=== PATIENT | male | born 1985 | race Caucasian/White ===

== ENCOUNTER 2016-08-14 17:21 | Emergency (ER) | payer OTHER ==
[2016-08-14] MEDS ORDERED: NS 1,000 ML IV ONE (18:06)
[2016-08-14] MEDS ORDERED: NITROGLYCERIN 0.4 MG BTL SL ONE (18:06)
[2016-08-14] MEDS ORDERED: GLUCAGON,HUMAN RECOMBINANT 1 MG VIAL IVP ONE (18:06)
[2016-08-14] MEDS ORDERED: ONDANSETRON 4 MG/2 ML VIAL IVP ONE (18:06)
--- NOTE | 2016-08-14 18:09 | EDPHY ---
H & P Stated Complaint: ? esophageal spasm/obstruction/has been unable to swallow for 22 hrs Time Seen by Provider: 08/14/16 17:58 HPI/ROS: CHIEF COMPLAINT: Esophageal foreign body HISTORY OF PRESENT ILLNESS: The patient is a 30-year-old man who comes to the emergency department complaining of an esophageal foreign body that has been present for 23 hours. Last night he is eating ribs when he noticed it got stuck in his throat. This has happened to him several times before but usually passes after about 10 minutes. He has been spitting out his secretions since then. He has tried taking Flexeril crushed up as well as drinking carbonated water without significant improvement. Both times he was unable to swallow them completely in the came back out. He denies shortness of breath. He denies chest pain. He has no history of cardiac disease. He is not a smoker. He has never been worked up for this previously. He has not vomited. REVIEW OF SYSTEMS: Constitutional: denies: chills, fever, recent illness, recent injury EENTM: denies: blurred vision, double vision, nose congestion Respiratory: denies: cough, shortness of breath Cardiac: denies: chest pain, irregular heart rate, lightheadedness, palpitations Gastrointestinal/Abdominal: See HPI Genitourinary: denies: dysuria, frequency, hematuria, pain Musculoskeletal: denies: joint pain, muscle pain Skin: denies: lesions, rash, jaundice, bruising Neurological: denies: headache, numbness, paresthesia, tingling, dizziness, weakness Hematologic/Lymphatic: denies: blood clots, easy bleeding, easy bruising Immunologic/allergic: denies: HIV/AIDS, transplant EXAM: GENERAL: Well-appearing, well-nourished and in no acute distress. HEAD: Atraumatic, normocephalic. EYES: Pupils equal round and reactive to light, extraocular movements intact, sclera anicteric, conjunctiva are normal. ENT: TMs normal, nares patent, oropharynx clear without exudates. Moist mucous membranes. NECK: Normal range of motion, supple without lymphadenopathy or JVD. LUNGS: Breath sounds clear to auscultation bilaterally and equal. No wheezes rales or rhonchi. HEART: Regular rate and rhythm without murmurs, rubs or gallops. ABDOMEN: Soft, nontender, normoactive bowel sounds. No guarding, no rebound. No masses appreciated. BACK: No CVA tenderness, no spinal tenderness, step-offs or deformities EXTREMITIES: Normal range of motion, no pitting or edema. No clubbing or cyanosis. NEUROLOGICAL: Cranial nerves II through XII grossly intact. Normal speech, normal gait. 5/5 strength, normal movement in all extremities, normal sensation PSYCH: Normal mood, normal affect. SKIN: Warm, dry, normal turgor, no visible rashes or lesions. Source: Patient Exam Limitations: No limitations - Personal History Current Tetanus/Diphtheria Vaccine: Unsure - Medical/Surgical History Hx Asthma: No Hx Chronic Respiratory Disease: No Hx Diabetes: No Hx Cardiac Disease: No Hx Renal Disease: No Hx Cirrhosis: No Hx Alcoholism: No Hx HIV/AIDS: No Hx Splenectomy or Spleen Trauma: No Other PMH: denies - Family History Significant Family History: No pertinent family hx - Social History Smoking Status: Never smoked Alcohol Use: Sober Drug Use: None Constitutional: Initial Vital Signs Temperature (C) 36.9 C 08/14/16 17:28 Heart Rate 74 08/14/16 17:28 Respiratory Rate 18 08/14/16 17:28 Blood Pressure 126/94 H 08/14/16 17:28 O2 Sat (%) 96 08/14/16 17:28 O2 Delivery Mode Room Air Allergies/Adverse Reactions: No Known Allergies Allergy (Unverified 08/14/16 17:28) Home Medications: Medication Instructions Recorded NK [No Known Home Meds] 08/14/16 Medical Decision Making ED Course/Re-evaluation: 7:20 p.m. the patient had success in passing his meat bolus after nitrogen, glucagon and eduardo rainer. He is now drinking and eating without difficulty. We discussed follow-up with GI. He and his mom are happy with this plan and declines further workup or testing at this time. Differential Diagnosis: Partial list of the Differential diagnosis considered include but were not limited to; esophageal food bolus, stricture, esophagitis and although unlikely based on the history and physical exam, I also considered perforation, aspiration. I discussed these differential diagnoses and the plan with the patient as well as the usual and expected course. The patient understands that the diagnosis is provisional and that in medicine we are not always correct and that further workup is often warranted. Usual and customary warnings were given. All of the patient's questions were answered. The patient was instructed to return to the emergency department should the symptoms at all worsen or return, otherwise to followup with the physician as we discussed. - Data Points Laboratory Results: Laboratory Results 08/14/16 18:45 08/14/16 18:45 Medications Given: Discontinued Medications Glucagon (Glucagen) 1 mg IVP EDNOW ONE Stop: 08/14/16 18:07 Last Admin: 08/14/16 18:22 Dose: 1 mg Sodium Chloride (Ns) 1,000 mls @ 0 mls/hr IV ONCE ONE; Wide Open PRN Reason: Protocol Stop: 08/14/16 18:07 Last Admin: 08/14/16 18:23 Dose: 1,000 mls Nitroglycerin (Nitrostat) 0.4 mg SL EDNOW ONE Stop: 08/14/16 18:07 Last Admin: 08/14/16 18:30 Dose: 1 tab Ondansetron HCl (Zofran) 4 mg IVP EDNOW ONE Stop: 08/14/16 18:07 Last Admin: 08/14/16 18:22 Dose: 4 mg Departure - Departure Disposition: Home, Routine, Self-Care Clinical Impression: Esophageal foreign body Qualifiers: Encounter type: initial encounter Qualified Code(s): T18.108A - Unspecified foreign body in esophagus causing other injury, initial encounter Condition: Fair Instructions: Esophageal Foreign Body (ED) Referrals: NONE *PRIMARY CARE P,. [Primary Care Provider] - As per Instructions Tung Castillo MD, FACG [Medical Doctor] - As per Instructions
[2016-08-14 19:06] LABS: % IMMATURE GRANULYOCYTES 0.6 % (0.0-1.1); ABSOLUTE IMMATURE GRANULOCYTES 0.05 10^3/uL (0.00-0.10); ADD DIFF? NO; ADD MORPH? NO; ADD SCAN? NO; ATYPICAL LYMPHOCYTE FLAG 10 (0-99); FRAGMENT RBC FLAG 0 (0-99); HEMATOCRIT 44.1 % (40.0-51.0); HEMOGLOBIN 15.8 g/dL (13.7-17.5); LEFT SHIFT FLG 0 (0-99); LIPEMIA HEMOLYSIS FLAG 90 (0-99); MEAN CELL HEMOGLOBIN 29.9 pg (27.9-34.1); MEAN CELL HEMOGLOBIN CONCENTR. 35.8 g/dL (32.4-36.7); MEAN CELL VOLUME 83.5 fL (81.5-99.8); MEAN PLATELET VOLUME 9.4 fL (8.7-11.7); PLATELET CLUMPS FLAG 10 (0-99); PLATELET COUNT 175 10^3/uL (150-400); RED BLOOD CELL COUNT 5.28 10^6/uL (4.40-6.38); RED CELL DISTRIBUTION WIDTH 12.2 % (11.5-15.2)
[2016-08-14 19:15] LABS: ANION GAP 12 mEq/L (8-16); CARBON DIOXIDE 21 mEq/l (22-31); CHLORIDE 111 mEq/L (97-110); CREATININE 0.9 mg/dL (0.7-1.3); GLOMERULAR FILTRATION RATE > 60; GLUCOSE 135 mg/dL (70-100); POTASSIUM 3.5 mEq/L (3.5-5.2); SODIUM 144 mEq/L (134-144)
[2016-08-14 19:36] VITALS: BP 120/74; PULSE 80; RESP 14; TEMP 97.9; O2SAT 94
== END 2016-08-14 19:35 | disposition home or self-care (01) ==
DX: T18.108A Unspecified foreign body in esophagus causing other injury, initial encounter (principal); E86.9 Volume depletion, unspecified; X58.XXXA Exposure to other specified factors, initial encounter
CPT/HCPCS: 96374; J1610; J2405

== ENCOUNTER 2017-02-04 10:23 | Day surgery (SDC) | payer MEDICAID ==
[2017-02-04 11:31] VITALS: PULSE 73
[2017-02-04] MEDS ORDERED: MIDAZOLAM 2 MG/2 ML VIAL ONE (12:26)
[2017-02-04] MEDS ORDERED: fentaNYL 100 MCG/2 ML INJ ONE (12:27)
--- NOTE | 2017-02-04 12:32 | PDGENHP ---
History & Physical Chief Complaint: dysphagia History of Present Illness: dysphagia Pertinent Past, Social, Family History: no tobacco. alcohol 3-4 x per week. fhx no cc Relevant Physical Exam: A+Ox3. CTA. S1S2, RRR. +BS, soft nt Cardiorespiratory Assessment: class 1
--- NOTE | 2017-02-04 12:33 | PDPROPOC ---
Sedation Plan of Care Sedation Plan of Care: vital signs stable, mental status noted, patient educated of risks, benefits, alternatives, patient can tolerate sedation ASA Classification: ASA 1 Planned drugs: fentanyl, midazolam Mallampati Score: Class 1 Mallampati Reference Image: 1 Patient passed 3-3-2 rule?: Yes (332)
--- NOTE | 2017-02-04 13:03 | GIREPORT ---
Former[facility] Surgical [facility] - Endoscopy Department Patient Name: Magdiel Gates Procedure Date: 02/04/2017 12:30 PM Patient Type: Outpatient Attending MD/ ER Physician: Britta Dawn Procedure: Upper GI endoscopy Indications: Dysphagia, Suspected eosinophilic esophagitis Providers: Bryant Glynn MD Referring MD: Ruby Drew NP Medicines: Fentanyl 100 micrograms IV, Midazolam 4 mg IV Complications: No immediate complications. Estimated blood loss: Minimal. Description of Procedure: After obtaining informed consent, the endoscope was passed under direct vision. Throughout the procedure, the patient's blood pressure, pulse, and oxygen saturations were monitored continuously. The Endoscope was intro duced through the mouth, and advanced to the third part of duodenum. The uppe r GI endoscopy was accomplished without difficulty. The patient tolerated th e procedure well. Findings: Mucosal changes including ringed esophagus, longitudinal furrows and wh ite plaques were found in the entire esophagus. Biopsies were obtained from the proximal and distal esophagus with cold forceps for histology of suspec melvin eosinophilic esophagitis. Estimated blood loss was minimal. One mild benign-appearing, intrinsic stenosis was found at the gastroesophageal junction. This measured 1.8 cm (inner diameter) x less than one cm (in length) and was traversed. A TTS dilator was passed through the scope. Dilation with an 18-19-20 mm x 8 cm CRE balloon dilator was perf ormed to 20 mm. The dilation site was examined and showed complete resolution of luminal narrowing. Estimated blood loss was minimal. The entire examined stomach was normal. The examined duodenum was normal. The exam was otherwise without abnormality. Estimated Blood Loss: Estimated blood loss was minimal. Post Op Diagnosis: - Esophageal mucosal changes suggestive of eosinophilic esophagitis. Biopsied. - Benign-appearing esophageal stenosis. Dilated. - Normal stomach. - Normal examined duodenum. - The examination was otherwise normal. Recommendation: - Await pathology results. - My office will call with the pathology result with 5-7 days. If you h ave not heard from my office by 12-14, do not assume the pathology is ashtyn l, please call [phone] to get the pathology results. - Use Protonix (pantoprazole) 40 mg PO daily. - If biopsy are consistent with Eosinophilic Esophagitis (EoE), then re nickie to [employer] and consider swallowed not inhaled fluticasone prn. - If c/w EoE, trial of swallowed not inhaled fluticasone. Remove spacer and place two jets of liquid into back of throat and swallow. then nothing by mouth for 30 minutes. Use twice per day, morning and evening. - Patient has a contact number available for emergencies. The signs and symptoms of potential delayed complications were discussed with the pat ient. Return to normal activities tomorrow. Written discharge instructions we re provided to the patient. - Continue present medications. - Discharge patient to home (ambulatory). - Return to endoscopist in 8 weeks. - Thank you for allowing me to help in your patient's care. Do not hesi boss to call with any questions. Attending Participation: I personally performed the entire procedure. Gretta Hurtado M.D Bryant Glynn MD 02/04/2017 1:03:00 PM This report has been signed electronicallyMathew MD Gretta Number of Addenda: 0 Note Initiated On: 02/04/2017 12:30 PM [email or web address]
[2017-02-04 13:16] VITALS: RESP 17
[2017-02-04 13:29] VITALS: BP 110/73; O2SAT 99
[2017-02-04 13:47] VITALS: TEMP 97.3
== END 2017-02-04 13:47 | disposition home or self-care (01) ==
LOC: FSGY 10:23
PROVIDERS: ATTEND Internal Medicine Gastroenterology
PROC: 0DB28ZX Excision of Middle Esophagus, Via Natural or Artificial Opening Endoscopic, Diagnostic (ICD-10-PCS; principal; 2017-02-04 12:00)
PROC: 0D748DZ Dilation of Esophagogastric Junction with Intraluminal Device, Via Natural or Artificial Opening Endoscopic (ICD-10-PCS; principal; 2017-02-04 12:00)
PROC: 0DB38ZX Excision of Lower Esophagus, Via Natural or Artificial Opening Endoscopic, Diagnostic (ICD-10-PCS; principal; 2017-02-04 12:00)
DX: K22.2 Esophageal obstruction (principal); R13.10 Dysphagia, unspecified
CPT/HCPCS: 43239; 43248; C1726; J2250; J3010